=== PATIENT | male | born 1995 | race Hispanic/Latino ===

== ENCOUNTER 2020-01-07 23:57 | Emergency (ER) | payer SELFPAY ==
[2020-01-08] MEDS ORDERED: TETANUS & DIPHTHERIA TOX,ADULT 0.5 ML VIAL ONE (00:31)
[2020-01-08 01:15] LABS: Absolute Lymphocytes (CBC) 3.2 K/uL (0.7-4.9); Basophils % 0.7 % (0-1.3); Hematocrit 45.2 % (39.6-49.0); Lymphocytes % 44.3 % (15.3-44.8)
[2020-01-08] MEDS ORDERED: LIDOCAINE 1% MPF 5 ML VIAL ONE (01:23)
[2020-01-08 01:26] LABS: ALT/SGPT 78 U/L (12-78); AST/SGOT 47 U/L (15-37); Albumin 4.1 g/dL (3.4-5.0); Alkaline Phosphatase 111 U/L (45-117); BUN Blood Urea Nitrogen 6 mg/dL (7-18); Bicarbonate 21 mmol/L (21-32); Bilirubin Direct < 0.1 mg/dL (0-0.2); Bilirubin Total 0.3 mg/dL (0.2-1.0); Glucose Level 114 mg/dL (74-106); Potassium 3.2 mmol/L (3.5-5.1); Protein, Total 7.9 g/dL (6.4-8.2); Sodium Level 144 mmol/L (136-145)
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
[2020-01-08 03:17] VITALS: O2SAT 98
[2020-01-08 03:18] VITALS: BP 112/85
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
== END 2020-01-08 02:15 | disposition home or self-care (01) ==
LOC: ER 23:57
PROC: 0HQ2XZZ Repair Right Ear Skin, External Approach (ICD-10-PCS; principal; 2020-01-08)
DX: S01.311A Laceration without foreign body of right ear, initial encounter (principal); F10.129 Alcohol abuse with intoxication, unspecified; Y04.2XXA Assault by strike against or bumped into by another person, initial encounter; Y92.89 Other specified places as the place of occurrence of the external cause; Z23 Encounter for immunization
CPT/HCPCS: 36415; 70450; 72125; 80048; 80076; 80320; 85025; 86850; 86900; 86901; 90471; 90714; 99285

== ENCOUNTER 2023-04-08 13:34 | Emergency (ER) | payer SELFPAY ==
[2023-04-08] MEDS ORDERED: IBUPROFEN 400 MG TAB ONE (14:16)
--- NOTE | 2023-04-08 15:13 | RAD REPORT ---
EXAM DESCRIPTION: RAD - Forearm Left - 04/08/2023 2:52 pm CLINICAL HISTORY: Left forearm pain status post injury FINDINGS: Comminuted markedly displaced fracture distal radius. Avulsion fracture ulnar styloid process
[2023-04-08] MEDS ORDERED: ONDANSETRON 4 MG (ODT) TAB ONE (15:56)
[2023-04-08] MEDS ORDERED: HYDROMORPHONE HCL 2 MG/ML inj ONE (15:59)
--- NOTE | 2023-04-08 16:36 | ER ---
Nurse's Notes [facility] Name: Khoa Gonzalez Age: 27 yrs Sex: Male : 1995 Arrival Date: 04/08/2023 Time: 13:34 Bed 12 Private MD: Diagnosis: Fracture of radius and ulna - left arm Presentation: 04/08 13:56 Chief complaint: Patient states: Left forearm, wrist, hand pain/swelling. Fell on it nj1 yesterday. Has not taken anything for pain. Coronavirus screen: Vaccine status: Patient reports being unvaccinated. Ebola Screen: Patient denies travel to an Ebola-affected area in the 21 days before illness onset. Initial Sepsis Screen: Does the patient meet any 2 criteria? No. Patient's initial sepsis screen is negative. Does the patient have a suspected source of infection? No. Patient's initial sepsis screen is negative. Risk Assessment: Do you want to hurt yourself or someone else? Patient reports no desire to harm self or others. Onset of symptoms was April 07, 2023. 13:56 Method Of Arrival: Ambulatory [facility] 13:56 Acuity: VIDAL 3 nj1 Triage Assessment: 14:02 General: Appears in no apparent distress. uncomfortable, Behavior is calm, cooperative, nj1 appropriate for age. Pain: Complains of pain in dorsal aspect of left forearm, left wrist and left hand Pain currently is 7 out of 10 on a pain scale. at worst was 10 out of 10 on a pain scale. Aggravated by repositioning, Movement. Neuro: Level of Consciousness is awake, alert, obeys commands, Oriented to person, place, time, situation. Cardiovascular: Patient's skin is warm and dry. Respiratory: Airway is patent Respiratory effort is even, unlabored. Musculoskeletal: Reports pain in dorsal aspect of left forearm, left wrist and left hand since yesterday. Musculoskeletal: Swelling present in left wrist and left hand. Injury Description: Abrasion sustained to left wrist is scabbed. Historical: - Allergies: 14:01 No Known Allergies; nj1 - PMHx: 14: None; nj1 - PSHx: 14: None; nj1 - Immunization history:: Client reports having NOT received the Covid vaccine. - Social history:: Smoking status: Patient reports the use of cigarette tobacco products, denies chronic smoking, but will smoke occasionally, Reported history of juuling and/or vaping. Screenin:37 [facility] ED Fall Risk Assessment (Adult) History of falling in the last 3 months, ss including since admission Yes- single mechanical fall (1 pt). Abuse screen: Denies threats or abuse. Denies injuries from another. Nutritional screening: No deficits noted. Tuberculosis screening: Never had TB. Assessment: 14:37 General: Appears uncomfortable, Behavior is calm, cooperative. Pain: Complains of pain ss in left hand and left wrist and dorsal aspect of left forearm Pain currently is 7 out of 10 on a pain scale. Quality of pain is described as aching, tender, Pain began 1 day ago. Is continuous. Neuro: Level of Consciousness is awake, alert, obeys commands, Oriented to person, place, time, situation. Cardiovascular: Pulses are palpable in right radial artery and left radial artery. Respiratory: Airway is patent Respiratory effort is even, unlabored, Respiratory pattern is regular, symmetrical. Derm: Skin is intact, is healthy with good turgor, Skin is pink, warm \T\ dry. normal. 14:42 Reassessment: XRAY at bedside. ss 16:04 Reassessment: Patient appears in no apparent distress at this time. Patient and/or ss family updated on plan of care and expected duration. Pain level reassessed. RASS 0. Awaiting for pain medication to take effect prior to wrist reduction. 16:31 Reassessment: Attempt by Dr. Nolen to reduce L wrist. Pt tolerated well. RASS 0. RR ss even and unlabored. Call light remains within reach. Post reduction XRAYs have been obtained. 17:00 Reassessment: Patient appears in no apparent distress at this time. Patient and/or ss family updated on plan of care and expected duration. Pain level reassessed. Patient is alert, oriented x 3, equal unlabored respirations, skin warm/dry/pink. awaiting ride. Vital Signs: 13:56 BP 136 / 81; Pulse 81; Resp 18; Temp 99(TE); Pulse Ox 100% ; Weight 124.74 kg; Height 6 nj1 ft. 0 in. ; Pain 7/10; 16:04 Pulse 74; Pulse Ox 99% on R/A; ss 17:00 BP 120 / 63; Pulse 62; Resp 16; Pulse Ox 99% on R/A; Pain 2/10; ss 13:56 Body Mass Index 37.30 (124.74 kg, 182.88 cm) nj1 13:56 Pain Scale: Adult nj1 17:00 Pain Scale: Adult ss ED Course: 13:38 Patient arrived in ED. mr 13:54 Kemi Frankel FNP-C [facility]. kb 13:54 Jim Nolen MD is Attending Physician. kb 14:01 Triage completed. nj1 14:02 Arm band placed on right wrist. nj1 14:37 Tonia Leslie, RN is Primary Nurse. ss 14:37 Patient has correct armband on for positive identification. Bed in low position. ss 14:53 Forearm Left XRAY In Process Unspecified. EDMS 16:28 Wrist Left 2 View In Process Unspecified. EDMS 16:58 No provider procedures requiring assistance completed. Patient did not have IV access ss during this emergency room visit. Orthoglass splint: Sugar tong splint applied on left arm. Sling applied to left arm. Administered Medications: 14:07 Drug: Ibuprofen PO 800 mg Route: PO; nj1 15:24 Follow up: Response: No adverse reaction ss 15:47 Drug: Ondansetron PO 4 mg Route: PO; ss 16:36 Follow up: Response: No adverse reaction ss 15:55 Drug: HYDROmorphone IM 2 mg Route: IM; Site: right deltoid; ss 16:36 Follow up: Response: No adverse reaction; Pain is decreased ss Medication: 14:37 VIS not applicable for this client. ss Outcome: 16:35 Discharge ordered by MD. kb 16:58 Condition: good ss 16:58 Demonstrated understanding of instructions, follow-up care, medications, splint care, Prescriptions given X 1. 17:08 Discharged to home ambulatory, with significant other. ss 17:08 Patient left the ED. ss Signatures: Dispatcher [employer] EDMS Kemi Frankel FNP-C FNP-Noreen BrewsteraMikayla mr Tonia Leslie, RN RN ss Lizzy Mondragon RN RN nj1 Corrections: (The following items were deleted from the chart) 16:05 16:04 Reassessment: Patient appears in no apparent distress at this time. Patient ss and/or family updated on plan of care and expected duration. Pain level reassessed. RASS 0. Awaiting for pain medication to work prior to wrist reduction. ss
--- NOTE | 2023-04-08 16:36 | EDPHYS ---
Physician Documentation [facility] Name: Khoa Gonzalez Age: 27 yrs Sex: Male : 1995 Arrival Date: 04/08/2023 Time: 13:34 Bed 12 Private MD: ED Physician Jim Nolen HPI: 04/08 18:10 This 27 yrs old Male presents to ER via Ambulatory with complaints of Arm kb Injury. 18:10 The patient or guardian complains of decreased range of motion, injury, pain, swelling, kb tenderness. The complaints affect the left forearm. Context: The problem was sustained at home, resulted from a fall. Onset: The symptoms/episode began/occurred yesterday. Treatment prior to arrival includes: no previous treatment. Modifying factors: The symptoms are alleviated by nothing. the symptoms are aggravated by movement. Associated signs and symptoms: Pertinent positives: decreased range of motion, pain, swelling. Severity of symptoms: At their worst the symptoms were moderate, in the emergency department the symptoms are unchanged. The patient has not experienced similar symptoms in the past. The patient has not recently seen a physician. Pt states he was running and fell, landing on his left arm and causing pain. Reports increased pain and swelling today. Denies numbness or tingling.. Historical: - Allergies: 14:01 No Known Allergies; nj1 - PMHx: 14:01 None; nj1 - PSHx: 14:01 None; nj1 - Immunization history:: Client reports having NOT received the Covid vaccine. - Social history:: Smoking status: Patient reports the use of cigarette tobacco products, denies chronic smoking, but will smoke occasionally, Reported history of juuling and/or vaping. ROS: 18:09 Constitutional: Negative for fever, chills, and weight loss. kb 18:09 MS/extremity: Positive for injury or acute deformity, decreased range of motion, pain, swelling, tenderness, of the left forearm. 18:09 All other systems are negative. Exam: 18:10 Constitutional: This is a well developed, well nourished patient who is awake, alert, kb and in no acute distress. Head/Face: Normocephalic, atraumatic. ENT: Moist Mucous membranes Cardiovascular: Regular rate and rhythm with a normal S1 and S2. No gallops, murmurs, or rubs. No pulse deficits. Respiratory: Respirations even and unlabored. No increased work of breathing. Talking in full sentences Skin: Warm, dry with normal turgor. Normal color. Neuro: Awake and alert, GCS 15, oriented to person, place, time, and situation. Moves all extremities. Normal gait. 18:10 Musculoskeletal/extremity: Extremities: grossly normal except: noted in the left forearm: decreased ROM, ecchymosis, pain, swelling, tenderness, ROM: limited active range of motion due to pain, in the left forearm, Circulation is intact in all extremities. Sensation intact. Vital Signs: 13:56 BP 136 / 81; Pulse 81; Resp 18; Temp 99(TE); Pulse Ox 100% ; Weight 124.74 kg; Height 6 nj1 ft. 0 in. ; Pain 7/10; 16:04 Pulse 74; Pulse Ox 99% on R/A; ss 17:00 BP 120 / 63; Pulse 62; Resp 16; Pulse Ox 99% on R/A; Pain 2/10; ss 13:56 Body Mass Index 37.30 (124.74 kg, 182.88 cm) nj1 13:56 Pain Scale: Adult nj1 17:00 Pain Scale: Adult ss Procedures: 18:11 Reduction: of the left wrist, using manipulation, Immobilized with splint. Patient kb tolerated well. performed by Dr Nolen. MDM: 13:58 Patient medically screened. kb 18:12 Differential diagnosis: dislocation, closed fracture, contusion, abrasion. Data kb reviewed: vital signs, nurses notes. Counseling: I had a detailed discussion with the patient and/or guardian regarding: the historical points, exam findings, and any diagnostic results supporting the discharge/admit diagnosis, radiology results, the need for outpatient follow up, a orthopedic surgeon, to return to the emergency department if symptoms worsen or persist or if there are any questions or concerns that arise at home. 04/08 14:02 Order name: Forearm Left XRAY; Complete Time: 15:19 kb 04/08 16:28 Order name: Wrist Left 2 View; Complete Time: 16:47 EDMS 04/08 14:02 Order name: Ice pack; Complete Time: 14:07 kb Administered Medications: 14:07 Drug: Ibuprofen PO 800 mg Route: PO; nj1 15:24 Follow up: Response: No adverse reaction ss 15:47 Drug: Ondansetron PO 4 mg Route: PO; ss 16:36 Follow up: Response: No adverse reaction ss 15:55 Drug: HYDROmorphone IM 2 mg Route: IM; Site: right deltoid; ss 16:36 Follow up: Response: No adverse reaction; Pain is decreased ss Disposition Summary: 04/08/23 16:35 Discharge Ordered Location: Home kb Condition: Stable kb Diagnosis - Fracture of radius and ulna - left arm kb Followup: kb - With: Emergency Department - When: As needed - Reason: Worsening of condition Followup: kb - With: Private Physician - When: 2 - 3 days - Reason: Recheck today's complaints, Continuance of care, Re-evaluation by your physician Discharge Instructions: - Discharge Summary Sheet kb - Wrist Fracture Rehab kb Forms: - Medication Reconciliation Form kb - Thank You Letter kb - Antibiotic Education kb - Prescription Opioid Use kb - Patient Portal Instructions kb - Leadership Thank You Letter kb - Work release form ss Prescriptions: - Tramadol 50 mg Oral Tablet - take 1 tablet by ORAL route every 8 hours as needed; 12 tablet; Refills: 0, kb Product Selection Permitted Signatures: Dispatcher [employer] EDKemi Flores, BLACK PULLER-C BLACK PULLER-Tonia Mendez, RN RN ss Lizzy Mondragon, ANITA RN nj1 Corrections: (The following items were deleted from the chart) 16:28 16:14 Forearm Left+[email or web address] ordered. EDMS EDMS
--- NOTE | 2023-04-08 16:46 | RAD REPORT ---
EXAM DESCRIPTION: RAD - Wrist Left 2 View - 04/08/2023 4:26 pm CLINICAL HISTORY: Left wrist pain status post injury FINDINGS: Splint immobilizes previously described fractures distal radius and ulna.
[2023-04-08 17:13] VITALS: TEMP 99
[2023-04-08 17:14] VITALS: O2SAT 99
[2023-04-08 17:16] VITALS: BP 120/63
== END 2023-04-08 17:08 | disposition home or self-care (01) ==
LOC: ER 13:34
PROC: 0PSJ35Z Reposition Left Radius with External Fixation Device, Percutaneous Approach (ICD-10-PCS; principal; 2023-04-08)
PROC: 0PSL35Z Reposition Left Ulna with External Fixation Device, Percutaneous Approach (ICD-10-PCS; 2023-04-08)
DX: S52.502A Unspecified fracture of the lower end of left radius, initial encounter for closed fracture (principal); S52.202A Unspecified fracture of shaft of left ulna, initial encounter for closed fracture
CPT/HCPCS: 96372; 99284; J1170; Q0162